=== PATIENT | female | born 1970 | race Caucasian/White ===

== ENCOUNTER 2016-11-18 08:21 | Day surgery (SDC) | payer OTHER ==
[~2016-11-18] VITALS: Ht 165.1 cm; Wt 79.0 kg
[~2016-11-18 08:21] MED LIST: BUPIVACAINE/PF-EPI 0.25% 1:200K ONE; RANI150T8 PO
[2016-11-18 08:55] VITALS: BP 132/90
[2016-11-18] MEDS ORDERED: LACTATED RINGERS 1,000 ML IV SCH (08:58)
[2016-11-18 09:13] LABS: HCG UR OBC PASS
[2016-11-18] MEDS ORDERED: MIDAZOLAM 1 MG/ML, 2ML ONE (11:46)
[2016-11-18] MEDS ORDERED: FENTANYL PF 250 MCG/5ML ONE (11:46)
[2016-11-18] MEDS ORDERED: ROCURONIUM 10 MG/ML ONE (12:02)
[2016-11-18] MEDS ORDERED: CEFAZOLIN 1,000 MG ONE (12:02)
[2016-11-18] MEDS ORDERED: ONDANSETRON 2MG/ML, 2ML ONE (12:02)
[2016-11-18] MEDS ORDERED: GLYCOPYRROLATE 0.2MG/1ML ONE (12:02)
[2016-11-18] MEDS ORDERED: DEXAMETHASONE 4 MG/ML, 1ML ONE (12:02)
[2016-11-18] MEDS ORDERED: SUCCINYLCHOLINE 20 MG/ML, 10ML ONE (12:02)
[2016-11-18] MEDS ORDERED: PROPOFOL 10 MG/ML, 20ML ONE (12:02)
[2016-11-18] MEDS ORDERED: NEOSTIGMINE 1 MG/ML, 10ML ONE (12:02)
[2016-11-18] MEDS ORDERED: ALBUTEROL SULFATE 2.5 MG/3 ML NPPB PRN (12:30)
[2016-11-18] MEDS ORDERED: hydrALAzine 20 MG/ML, 1ML IV PRN (12:30)
[2016-11-18] MEDS ORDERED: OXYcodone 5 MG/5 ML ORAL.SOL UDC PO PRN (12:30)
[2016-11-18] MEDS ORDERED: MEPERIDINE/PF 25MG/0.5ML IVPush PRN (12:30)
[2016-11-18] MEDS ORDERED: HYDROmorphone 1 MG/ML, 1ML IV PRN (12:30)
[2016-11-18] MEDS ORDERED: LABETALOL 5MG/ML, 20ML IV PRN (12:30)
[2016-11-18] MEDS ORDERED: ONDANSETRON 2MG/ML, 2ML IVPush PRN (12:30)
[2016-11-18] MEDS ORDERED: PROMETHAZINE 25 MG/ML, 1ML IV PRN (12:30)
[2016-11-18] MEDS ORDERED: MIDAZOLAM 1 MG/ML, 2ML IV PRN (12:30)
[2016-11-18] MEDS ORDERED: HYDROCORTISONE 100 MG INJ. ONE (12:52)
[2016-11-18] MEDS ORDERED: methylPREDNISolone SOD SUCC 125 MG/2 ML ONE (12:52)
[2016-11-18] MEDS ORDERED: OMNIPAQUE 350 MG/ML, 50 ML BOTTLE IV ONE (13:00)
[2016-11-18] MEDS ORDERED: OXYcodone 5 MG/5 ML ORAL.SOL UDC ONE (14:07)
[2016-11-18] MEDS ORDERED: FENTANYL PF 100 MCG/2ML ONE (14:07)
[2016-11-18] MEDS: FENTANYL PF 100 MCG/2ML IV PRN ×3 (14:15→14:30)
[2016-11-18] MEDS ORDERED: ONDANSETRON ODT 4 MG PO ONE (15:30)
[2016-11-18] MEDS ORDERED: FAMOTIDINE 20 MG TABLET PO SCH (15:30)
[2016-11-18] MEDS ORDERED: ONDANSETRON ODT 4 MG ONE (15:31)
[2016-11-18] MEDS ORDERED: FAMOTIDINE 20 MG TABLET PO ONE (16:00)
== END 2016-11-18 18:00 | disposition home or self-care (01) ==
LOC: OUT 08:21
PROVIDERS: ATTEND Surgery
DX: K81.1 Chronic cholecystitis (principal); K21.9 Gastro-esophageal reflux disease without esophagitis; I10 Essential (primary) hypertension; Z72.89 Other problems related to lifestyle; Z82.49 Family history of ischemic heart disease and other diseases of the circulatory system
CPT/HCPCS: 47563; 74300; 81003; 81025; 88304; J0330; J0690; J1100; J2250; J2405; J2704; J2710; J2930; J3010; J7120; Q0162; Q9967; J3490; J1720